=== PATIENT | male | born 1985 | race Caucasian/White ===

== ENCOUNTER → 2017-07-19 | Outpatient (CLI) | payer BC | LOC: FIMAGING 13:22 | PROVIDERS: ATTEND Family Medicine | DX: R10.84 Generalized abdominal pain (principal) ==

== ENCOUNTER 2018-05-12 12:54 | Emergency (ER) | payer BC ==
[2018-05-12] MEDS ORDERED: NS 1,000 ML IV ONE (13:19)
--- NOTE | 2018-05-12 13:19 | EDPHY ---
H & P Stated Complaint: epigastric/radiating into upper chest pain hx ibs n/v/d Time Seen by Provider: 05/12/18 13:19 HPI/ROS: CHIEF COMPLAINT: Epigastric pain, chest pain, nausea HISTORY OF PRESENT ILLNESS: The patient presents to the ED with an acute exacerbation of chronic epigastric pain, chest pain and nausea. The patient has been struggling with the symptoms for some time as well as weight loss. The patient has had unremarkable laboratory testing. The patient was seen at [facility] in March and had unremarkable imaging of his chest abdomen and pelvis. The patient denies any complaints of fever cough. In the ED he complains only of sharp mid abdominal discomfort. The patient denies any hematuria or dysuria. The patient states that his symptoms are mild in nature. REVIEW OF SYSTEMS: A comprehensive 10 point review of systems is otherwise negative aside from elements mentioned in the history of present illness. Source: Patient Exam Limitations: No limitations - Personal History Current Tetanus Diphtheria and Acellular Pertussis (TDAP): No - Medical/Surgical History Hx Asthma: No Hx Chronic Respiratory Disease: No Hx Diabetes: No Hx Cardiac Disease: No Hx Renal Disease: No Hx Cirrhosis: No Hx Alcoholism: No Hx HIV/AIDS: No Hx Splenectomy or Spleen Trauma: No Other PMH: ibs PC3 - Social History Smoking Status: Never smoked Alcohol Use: None - Physical Exam Exam: General Appearance: Alert, no distress Eyes: Pupils equal and round no pallor or injection ENT, Mouth: Mucous membranes moist Respiratory: There are no retractions, lungs are clear to auscultation Cardiovascular: Regular rate and rhythm Gastrointestinal: Minimal mid abdominal tenderness to palpation, no peritoneal signs, normal bowel sounds Neurological: A&O, normal motor function, normal sensory exam, normal cranial nerves Skin: Warm and dry, no rashes Musculoskeletal: Neck is supple nontender Extremities: Thin male Psychiatric: Patient is oriented X 3, there is no agitation Constitutional: Initial Vital Signs Temperature (C) 36.6 C 05/12/18 13:00 Heart Rate 99 05/12/18 13:00 Respiratory Rate 18 05/12/18 13:00 Blood Pressure 106/85 H 05/12/18 13:00 O2 Sat (%) 96 05/12/18 13:00 O2 Delivery Mode Room Air Allergies/Adverse Reactions: No Known Allergies Allergy (Unverified 05/12/18 13:00) Home Medications: Medication Instructions Recorded NK [No Known Home Meds] 05/12/18 Medical Decision Making - Diagnostics EKG Interpretation: EKG: Complete interpretation has been separately recorded in the [facility] archive. Summary impression: Sinus rhythm, right axis deviation, early repolarization ED Course/Re-evaluation: I reviewed the results of the CT scan of the chest abdomen pelvis performed in March of 2018 which demonstrated: FINDINGS: Chest: Vascular: Central pulmonary arteries are normal in size. The aorta shows no aneurysm or dissection. Heart and mediastinum: The heart size is normal. There are no enlarged lymph nodes. Lungs: No consolidation or pulmonary nodule. Pleura: No effusion or pneumothorax. Bones: No aggressive bone lesion or acute fracture. Other: No other signifcant findings. Abdomen/pelvis: Liver/Gallbladder/Biliary: Normal Spleen: Normal. Pancreas: Normal Adrenal glands: Normal. Right kidney: Normal, without mass or hydronephrosis. Left kidney: Normal, without mass or hydronephrosis. Aorta/Vascular: The aorta is normal in caliber. Other vascular structures are normal. Stomach and bowel: Stomach and small bowel appear unremarkable. The colon is grossly normal. Free fluid/free air: No free fluid or free air. Lymph nodes: No pathologically enlarged lymph nodes. Other: The bladder appears unremarkable. The abdominal wall is intact. Bones: No aggressive bone lesion or fracture. Impression: Normal CT of the chest, abdomen and pelvis. ED course: Patient's EKG demonstrates no evidence of ischemia. He does have evidence of repolarization. His laboratory testing is unremarkable. The patient had a normal CT scan of the chest abdomen pelvis less than 6 weeks ago which demonstrated no evidence of acute pathology. At this point time I have asked the patient to continue to work with his primary care provider in [facility] for evaluation of his chronic intestinal complaints. The patient has been advised to return to the ED for severe pain or other concerns. Differential Diagnosis: Differential diagnosis considered includes irritable bowel syndrome, pancreatitis, cholecystitis, dehydration, peptic ulcer disease. - Data Points Laboratory Results: Laboratory Results 05/12/18 13:30 05/12/18 13:30 05/12/18 05/12/18 13:30 13:30 WBC 10.46 10^3/uL H 10^3/uL (3.80-9.50) RBC 5.34 10^6/uL 10^6/uL (4.40-6.38) Hgb 16.7 g/dL g/dL (13.7-17.5) Hct 47.4 % % (40.0-51.0) MCV 88.8 fL fL (81.5-99.8) MCH 31.3 pg pg (27.9-34.1) MCHC 35.2 g/dL g/dL (32.4-36.7) RDW 12.9 % % (11.5-15.2) Plt Count 229 10^3/uL 10^3/uL (150-400) MPV 10.7 fL fL (8.7-11.7) Neut % (Auto) 75.3 % H % (39.3-74.2) Lymph % (Auto) 13.5 % L % (15.0-45.0) [place] % (Auto) 8.3 % % (4.5-13.0) Eos % (Auto) 1.7 % % (0.6-7.6) Baso % (Auto) 1.0 % % (0.3-1.7) Nucleat RBC Rel Count 0.0 % % (0.0-0.2) Absolute Neuts (auto) 7.88 10^3/uL H 10^3/uL (1.70-6.50) Absolute Lymphs (auto) 1.41 10^3/uL 10^3/uL (1.00-3.00) Absolute Monos (auto) 0.87 10^3/uL H 10^3/uL (0.30-0.80) Absolute Eos (auto) 0.18 10^3/uL 10^3/uL (0.03-0.40) Absolute Basos (auto) 0.10 10^3/uL 10^3/uL (0.02-0.10) Absolute Nucleated RBC 0.00 10^3/uL 10^3/uL (0-0.01) Immature Gran % 0.2 % % (0.0-1.1) Immature Gran # 0.02 10^3/uL 10^3/uL (0.00-0.10) Sodium 138 mEq/L mEq/L (135-145) Potassium 4.1 mEq/L mEq/L (3.5-5.2) Chloride 107 mEq/L mEq/L (97-110) Carbon Dioxide 23 mEq/l mEq/l (22-31) Anion Gap 8 mEq/L mEq/L (6-14) BUN 16 mg/dL mg/dL (7-23) Creatinine 0.8 mg/dL mg/dL (0.7-1.3) Estimated GFR > 60 Glucose 106 mg/dL H mg/dL (70-100) Calcium 9.3 mg/dL mg/dL (8.5-10.4) Total Bilirubin 1.1 mg/dL mg/dL (0.1-1.4) Conjugated Bilirubin 0.3 mg/dL mg/dL (0.0-0.5) Unconjugated Bilirubin 0.8 mg/dL mg/dL (0.0-1.1) AST 30 IU/L IU/L (17-59) ALT 45 IU/L IU/L (21-72) Alkaline Phosphatase 39 IU/L IU/L (38-126) Total Protein 7.2 g/dL g/dL (6.3-8.2) Albumin 4.4 g/dL g/dL (3.5-5.0) Lipase 201 IU/L IU/L (23-300) Medications Given: Discontinued Medications Sodium Chloride (Ns) 1,000 mls @ 0 mls/hr IV EDNOW ONE; Wide Open PRN Reason: Protocol Stop: 05/12/18 13:20 Last Admin: 05/12/18 13:37 Dose: 1,000 mls Departure - Departure Disposition: Home, Routine, Self-Care Clinical Impression: Abdominal pain Condition: Good Instructions: Abdominal Pain (ED) Additional Instructions: 1. Please continue to work with your primary care provider and [facility] for evaluation of your complaints. 2. The lab work and EKG in the emergency department today are normal. 3. Please return to the ED for severe pain or other concerns. Referrals: Fito Caldera MD [Primary Care Provider] - As per Instructions
[2018-05-12 13:55] LABS: PLATELET COUNT 229 10^3/uL (150-400)
[2018-05-12 14:35] VITALS: BP 110/69
--- NOTE | 2018-05-12 14:44 | CPEKG ---
Test Reason : OPEN Blood Pressure : / mmHG Vent. Rate : 071 BPM Atrial Rate : 071 BPM P-R Int : 180 ms QRS Dur : 108 ms QT Int : 393 ms P-R-T Axes : 059 113 049 degrees QTc Int : 428 ms Sinus rhythm Right axis deviation ST elev, probable normal early repol pattern Confirmed by Vamsi Lorenz ([id number]) on 05/12/2018 2:44:10 PM Referred By: Vamsi Lorenz Confirmed By:Vamsi Lorenz
== END 2018-05-12 14:35 | disposition home or self-care (01) ==
DX: R10.13 Epigastric pain (principal); R07.9 Chest pain, unspecified; R11.0 Nausea; E86.9 Volume depletion, unspecified